=== PATIENT | female | born 1970 | race African-American/Black ===

== ENCOUNTER 2018-05-28 16:40 | Emergency (ER) | payer SELFPAY ==
[2018-05-28 16:54] VITALS: BP 181/98
--- NOTE | 2018-05-28 17:57 | ER Document Report ---
ED Medical Screen (RME) - General Chief Complaint: Leg Pain Stated Complaint: LEG PAIN Time Seen by Provider: 05/28/18 17:51 TRAVEL OUTSIDE OF THE [place] 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 complaining of pain in the right leg today reminiscent of when she was diagnosed with a DVT 3 years ago, not currently on any anticoagulation - Related Data Allergies/Adverse Reactions: No Known Allergies Allergy (Unverified 05/28/18 16:46) Past Medical History - Social History Chew tobacco use (# tins/day): No Frequency of alcohol use: Social Drug Abuse: None - Past Medical History Cardiac Medical History: Reports: Hx Hypertension Renal/ Medical History: Denies: Hx Peritoneal Dialysis Past Surgical History: Reports: Hx Hysterectomy Physical Exam - Vital signs Vitals: Temp Pulse Resp BP Pulse Ox 98.5 F 110 H 14 181/98 H 98 05/28/18 16:53 05/28/18 16:53 05/28/18 16:53 05/28/18 16:53 05/28/18 16:53 Course - Vital Signs Vital signs: Temp Pulse Resp BP Pulse Ox 98.5 F 110 H 14 181/98 H 98 05/28/18 16:53 05/28/18 16:53 05/28/18 16:53 05/28/18 16:53 05/28/18 16:53 Doctor's Discharge - Discharge Referrals: LIZ,NO [Primary Care Provider] - Follow up as needed
[2018-05-28] MEDS ORDERED: LIDOCAINE 5% (700 MG) TRANSDERMAL ADH..PATCH TP ONE (19:00)
--- NOTE | 2018-05-28 19:11 | ER Document Report ---
ED General - General Chief Complaint: Leg Pain Stated Complaint: LEG PAIN Time Seen by Provider: 05/28/18 17:51 TRAVEL OUTSIDE OF THE [place] IN LAST 30 DAYS: No - HPI Patient complains to provider of: Right leg pain Notes: Patient coming in for right leg pain. Patient points to the of the anterior mcwilliams just below the tibial plateau of the area of her pain states sharp shooting intermittent. Patient states is also the area where she was diagnosed with DVT in the past. Patient denies any recent travel denies any fevers chills nausea vomiting diarrhea. Denies any leg swelling. Patient resting comfortably upon my evaluation - Related Data Allergies/Adverse Reactions: No Known Allergies Allergy (Unverified 05/28/18 16:46) Past Medical History - Social History Smoking Status: Current Every Day Smoker Chew tobacco use (# tins/day): No Frequency of alcohol use: Social Drug Abuse: None Family History: Reviewed & Not Pertinent Patient has suicidal ideation: No Patient has homicidal ideation: No - Past Medical History Cardiac Medical History: Reports: Hx Hypertension Renal/ Medical History: Denies: Hx Peritoneal Dialysis Past Surgical History: Reports: Hx Hysterectomy Review of Systems - Review of Systems Constitutional: No symptoms reported EENT: No symptoms reported Cardiovascular: No symptoms reported Respiratory: No symptoms reported Gastrointestinal: No symptoms reported Genitourinary: No symptoms reported Female Genitourinary: No symptoms reported Musculoskeletal: Other - Leg pain Skin: No symptoms reported Hematologic/Lymphatic: No symptoms reported Neurological/Psychological: No symptoms reported -: Yes All other systems reviewed and negative Physical Exam - Vital signs Vitals: Temp Pulse Resp BP Pulse Ox 98.5 F 110 H 14 181/98 H 98 05/28/18 16:53 05/28/18 16:53 05/28/18 16:53 05/28/18 16:53 05/28/18 16:53 Interpretation: Normal - General General appearance: Appears well, Alert - HEENT Head: Normocephalic, Atraumatic Eyes: Normal Pupils: PERRL - Respiratory Respiratory status: No respiratory distress Chest status: Nontender Breath sounds: Normal Chest palpation: Normal - Cardiovascular Rhythm: Regular Heart sounds: Normal auscultation Murmur: No - Abdominal Inspection: Normal Distension: No distension Bowel sounds: Normal Tenderness: Nontender Organomegaly: No organomegaly - Back Back: Normal, Nontender - Extremities General upper extremity: Normal inspection, Nontender, Normal color, Normal ROM , Normal temperature General lower extremity: Normal inspection, Nontender, Normal color, Normal ROM , Normal temperature, Normal weight bearing. No: Eloise's sign - Neurological Neuro grossly intact: Yes Cognition: Normal Orientation: AAOx4 Toribio Coma Scale Eye Opening: Spontaneous [place] Coma Scale Verbal: Oriented Toribio Coma Scale Motor: Obeys Commands Toribio Coma Scale Total: 15 Speech: Normal Motor strength normal: LUE, RUE, LLE, RLE Sensory: Normal - Psychological Associated symptoms: Normal affect, Normal mood - Skin Skin Temperature: Warm Skin Moisture: Dry Skin Color: Normal Course - Re-evaluation Re-evalutation: 05/28/18 23:39 bedside Dopplers negative. Examinations not reveal any etiology causing the patient's pain pain cannot be reproduced on examination recommend lidocaine patch follow-up with primary care physician. More likely etiologies muscle skeletal - Vital Signs Vital signs: Temp Pulse Resp BP Pulse Ox 98.5 F 110 H 14 181/98 H 98 05/28/18 16:53 05/28/18 16:53 05/28/18 16:53 05/28/18 16:53 05/28/18 16:53 Discharge - Discharge Clinical Impression: Leg pain Qualifiers: Laterality: right Qualified Code(s): M79.604 - Pain in right leg Condition: Good Disposition: HOME, SELF-CARE Instructions: Leg Pain Nonspecific ([facility]) Additional Instructions: At this time your physical examination and ultrasound did not show any signs of a DVT. More likely your pain is muscle skeletal in nature. Would recommend taking 600 mg of Motrin along with 650 mg of Tylenol together 3 times a day for pain control. If you do receive good pain relief with lidocaine patch be provided for you here in the ER she may ask her pharmacist about over-the- counter lidocaine patches. Follow-up with your primary care physician return to ER symptoms worsen. Prescriptions: Ibuprofen [Motrin 600 mg Tablet] 600 mg PO Q8HP PRN #90 tablet PRN Reason: Referrals: LOCALMD,NO [Primary Care Provider] - Follow up as needed
--- NOTE | 2018-05-28 19:58 | RADIOLOGY REPORT (SQ) ---
EXAM DESCRIPTION: VENOUS UNILATERAL LOWER COMPLETED DATE/TIME: 05/28/2018 7:12 pm REASON FOR STUDY: right leg pain COMPARISON: None. TECHNIQUE: Dynamic and static goldsmith scale and color images acquired of the right leg venous system. S elected spectral images acquired with additional compression and augmentation maneuvers. The contrala teral common femoral vein and saphenofemoral junction were also imaged. Images stored on PACS. LIMITATIONS: None. FINDINGS: COMMON FEMORAL: Normal phasicity, compression and augmentation. No visualized echogenic ma terial on goldsmith scale. No defects on color images. FEMORAL: Normal compression and augmentation. No visualized echogenic material on goldsmith scale. No defe cts on color images. POPLITEAL: Normal compression, augmentation. No visualized echogenic material on goldsmith scale. No defec ts on color images. CALF VESSELS: Normal compression, augmentation. No visualized echogenic material on goldsmith scale. No de fects on color images. GSV and SSV: Normal compression, augmentation. No visualized echogenic material on goldsmith scale. No def ects on color images. ANY DEEP VENOUS INSUFFICIENCY: Not evaluated. ANY EVIDENCE OF POPLITEAL CYST: No. OTHER: No other significant finding. CONTRALATERAL COMMON FEMORAL VEIN AND SAPHENOFEMORAL JUNCTION: Normal phasicity, compression and augmentation. No visualized echogenic material on goldsmith scale. No de fects on color images. IMPRESSION: NO EVIDENCE OF DVT OR SVT IN THE RIGHT LEG. TECHNICAL DOCUMENTATION: JOB ID: [id number] 2010 [employer]- All Rights Reserved Reading location - IP/workstation name: [email or web address]
== END 2018-05-28 19:16 | disposition home or self-care (01) ==
LOC: ER 16:40
DX: M79.604 Pain in right leg (principal); F17.200 Nicotine dependence, unspecified, uncomplicated; I10 Essential (primary) hypertension; Z86.718 Personal history of other venous thrombosis and embolism; Z90.710 Acquired absence of both cervix and uterus
CPT/HCPCS: 93971; 99284